=== PATIENT | female | born 1995 | race Caucasian/White ===

== ENCOUNTER → 2016-09-27 | Outpatient (CLI) | payer MEDICAID ==
[~2016-09-27] MED LIST: IBUP-232 PO
== END ==
LOC: CLAB 15:36
PROVIDERS: ATTEND Obstetrics & Gynecology
DX: O36.0190 Maternal care for anti-D [Rh] antibodies, unspecified trimester, not applicable or unspecified (principal)
CPT/HCPCS: 36415; 86850; 86900; 86901; 90384; J2790

== ENCOUNTER → 2016-09-30 | Outpatient (CLI) | payer MEDICAID | LOC: CIVT 14:33 | PROVIDERS: ATTEND Obstetrics & Gynecology | DX: O36.0990 Maternal care for other rhesus isoimmunization, unspecified trimester, not applicable or unspecified (principal); Z3A.00 Weeks of gestation of pregnancy not specified | CPT/HCPCS: 90384; 96372; J2790 ==

== ENCOUNTER 2016-12-09 08:41 | Inpatient (IN) | payer MEDICAID ==
[2016-12-09] VITALS (65 sets, daily range): BP systolic 77–142; BP diastolic 47–103; PULSE 18–177; RESP 16–19; TEMP 97.6–98.6
[2016-12-09] MEDS ORDERED: LACTATED RINGER'S 1000 ML INJ 1,000 ML IV PRN (09:01)
[2016-12-09] MEDS ORDERED: LACTATED RINGER'S 1000 ML INJ 1,000 ML IV SCH (09:01)
--- NOTE | 2016-12-09 09:09 | PD ---
HPI Chief Complaint Water broke and contractions Date Seen: Dec 09, 2016 Travel History International Travel<30 Days: No Contact w/Intl Traveler<30Days: No Known Affected Area: No History of Present Illness HPI Patient is 21-year-old white female at 38 weeks with spontaneous rupture membranes and early labor, is gross ruptured membranes noted OB ED. Contractions are regular painful and her cervix is 3 cm 80% effaced, heart rate tracing is reactive and regular contractions saying Para: 0 : 1 History Social History Alcohol Use: No Tobacco Use: No Substance Abuse: No Allergies-Medications (Allergen,Severity, Reaction): Coded Allergies: No Known Allergies (Unverified , 12/09/16) Review of Systems General / Constitutional: No: Fever, Weight Gain, Chills, Other Eyes: No: Diploplia, Blurred Vision, Visual changes, Pain, Photophobia HENT: No: Headaches, Vertigo, Lightheadedness Cardiovascular: No: Irregular Rhythm, Chest Pain or Discomfort, Palpitations, Tachycardia, Syncope, Varicosities, Edema, Cyanosis Respiratory: No: Cough, Short of Breath, Other Gastrointestinal: No: Nausea, Vomiting, Diarrhea Genitourinary: No: Decreased Urinary Output, Oliguria Musculoskeletal: No: Limited ROM, Weakness, Cramping, Edema, Pain Skin: No Rash, No Itching, No Dryness, No Lumps, No Change in Pigmentation, No Change in Nails, No Alopecia, No Lesions Neurologic: No: Weakness, Dizziness, Syncope, Focal Abnormalities, Coordination Problem, Headache, Slurred Speech, Seizures Psychiatric: No: Depression, Suicidal Ideations, Homicidal Ideation Endocrine: No: Heat Intolerance, Cold Intolerance, Polydipsia, Polyuria, Other Physical Exam Narrative GENERAL: Well-nourished, well-developed patient. SKIN: Warm and dry. HEAD: Normocephalic and atraumatic. EYES: No scleral icterus. No injection or drainage. ENT: No nasal drainage noted. Mucous membranes pink. Airway patent. NECK: Supple, trachea midline. No JVD. CARDIOVASCULAR: Regular rate and rhythm without murmurs, gallops, or rubs. RESPIRATORY: Breath sounds equal bilaterally. No accessory muscle use. BREASTS: Bilateral exam showed no masses , no retractions, no nipple discharge. ABDOMEN/GI: Abdomen soft, non-tender, bowel sounds present, no rebound, no guarding Gravid to [38-] weeks size Fundal Height: [38-] GENITOURINARY: External Genitalia: intact and normal in appearance BUS glands: [-] Cervix: [-] Dilatation: [-3] Effacement: [-80] Station: [-2] Presentation: [vtx-] Membranes: ruptured] Uterine Contractions: [q 3 min-] FHT's: Category: [-1] Baseline: [133-] Reactive: [-yes] Variability: [mod-] Decels: [-] EXTREMITIES: No cyanosis or edema. BACK: Nontender without obvious deformity. No CVA tenderness. NEUROLOGICAL: Awake and alert. Motor and sensory grossly within normal limits. Five out of 5 muscle strength in all muscle groups. Normal speech. Data Data Orders Ob (2e) Additional Admit Info (12/09/16 08:52) Admit To Inpatient (12/09/16 ) Code Status (12/09/16 09:01) Vital Signs (Adult) .Per protocol (12/09/16 09:01) Activity Oob Ad Torie (12/09/16 09:01) Heart (12/09/16 09:01) Amnioinfusion (12/09/16 09:01) Urinary Catheter Management .ONCE (12/09/16 09:01) Diet Liquid (12/09/16 Breakfast) Lactated Ringer's 1000 Ml Inj (Lr 1000 M (12/09/16 09:01) Lactated Ringer's 1000 Ml Inj (Lr 1000 M (12/09/16 09:01) Sodium Chlorid 0.9% 500 Ml Inj (Ns 500 M (12/09/16 09:15) Sodium Chlor 0.9% 1000 Ml Inj (Ns 1000 M (12/09/16 09:21) Lidocaine 1% Inj (50 Ml) (Xylocaine 1% I (12/09/16 09:15) Citric Acid-Sodium Citrate Liq (Bicitra (12/09/16 09:15) Ondansetron Inj (Zofran Inj) (12/09/16 09:15) Fentanyl Inj (Fentanyl Inj) (12/09/16 09:15) Fentanyl Inj (Fentanyl Inj) (12/09/16 09:15) Complete Blood Count With Diff (12/09/16 09:01) Hold Clot (12/09/16 09:01) Abo/Rh Blood Type (12/09/16 09:01) Urinalysis - C+S If Indicated (12/09/16 09:01) Resp Oxygen Non Rebreathe Mask (12/09/16 ) ^ Epidural / Intrathecal Infus (12/09/16 09:01) Oxytocin 30 Units-500ml Premix (Pitocin (12/09/16 09:15) Lidocaine 1% Inj (50 Ml) (Xylocaine 1% I (12/09/16 09:15) Light Mineral Oil (Muri-Lube Oil) (12/09/16 09:15) Inpatient Certification (12/09/16 ) Specimen To Be Collected PRN (12/09/16 09:01) MDM Interpretation(s) Patient is 21-year-old white female at 38 weeks presents planning of rupture membranes early labor. The contractions noted be every 2-3 minutes and is gross rupture noted on OB ED. Patient's cervix is 3 cm 80% and -2 vertex and the heart rate tracing is reactive Plan Plan to admit for labor management augmentation as needed patient is one [facility] patient's and Dr. Duncan& Dr. Hallman or where the patient's status Diagnosis Diagnosis: Primary Impression: Leakage of amniotic fluid Additional Impression: Uterine contractions during Condition: Stable Lawrence Manuel II, MD Dec 09, 2016 09:09
[2016-12-09] MEDS ORDERED: CITRIC ACID-SODIUM CITRATE LIQ 30 ML UDC PO SCH (09:15)
[2016-12-09] MEDS ORDERED: LIDOCAINE HCL 1% 50 ML VIAL INFIL PRN (09:15)
[2016-12-09] MEDS ORDERED: OXYTOCIN 30 UNITS-500ML PREMIX 500 ML IV ONE ×2 (09:15→14:00)
[2016-12-09] MEDS ORDERED: SODIUM CHLORID 0.9% 500 ML INJ 500 ML IV PRN (09:15)
[2016-12-09] MEDS ORDERED: LIDOCAINE HCL 1% 50 ML VIAL I-DERMAL PRN (09:15)
[2016-12-09] MEDS ORDERED: ONDANSETRON HCL 4 MG/2 ML VIAL IV PRN (09:15)
[2016-12-09] MEDS ORDERED: MINERAL OIL 10 ML VIAL TOPICAL PRN (09:15)
[2016-12-09] MEDS ORDERED: SODIUM CHLOR 0.9% 1000 ML INJ 1,000 ML IV PRN (09:21)
[2016-12-09 09:40] LABS: BASOPHIL % 0.4 % (0.0-2.0); EOSINOPHIL % 0.2 % (0.0-4.0); HEMATOCRIT 36.8 % (35.0-46.0); HEMO FLAGS DIFF FINAL; LYMPH % 16.7 % (9.0-44.0); LYMPHOCYTE # 1.9 TH/MM3 (1.0-4.8); MEAN CELL VOLUME 89.1 FL (80.0-100.0); MEAN CORPUSCULAR HEMOGLOBIN 29.9 PG (27.0-34.0); MEAN CORPUSCULAR HGB CONC 33.5 % (32.0-36.0); MONO % 4.3 % (0.0-8.0); NEUT % 78.4 % (16.0-70.0); PLATELET COUNT 211 TH/MM3 (150-450); RED BLOOD COUNT 4.13 MIL/MM3 (4.00-5.30); RED CELL DISTRIBUTION WIDTH 13.6 % (11.6-17.2); WHITE BLOOD COUNT 11.4 TH/MM3 (4.0-11.0)
[2016-12-09 09:49] LABS: BACTERIA, URINE RARE /hpf; BLOOD, URINE TRACE (NEG); COMMENT (UR) CULT NOT INDICATED; CULTURE IF INDICATED CULT NOT INDICATED; GLUCOSE,URINE NEG (NEG); KETONE, URINE NEG (NEG); MUCUS URINE FEW /lpf (OCC); NITRITE,URINE NEG (NEG); PH, URINE 6.5 (5.0-8.5); SQUAMOUS EPITHELIAL CELL URINE 4 /hpf (0-5); URINE COLOR YELLOW (YELLW/STRAW)
[2016-12-09] MEDS ORDERED: ePHEDrine/NS 25 MG/5 ML SYR ONE (10:19)
[2016-12-09] MEDS ORDERED: fentaNYL 2MCG-BUPIV 0.125% INJ 100 ML ONE (10:19)
[2016-12-09] MEDS ORDERED: DO NOT ADMINISTER ANTICOAGULANTS PRN (13:30)
[2016-12-09] MEDS ORDERED: ePHEDrine/NS 25 MG/5 ML SYR IV PRN (13:30)
[2016-12-09] MEDS ORDERED: fentaNYL 2MCG-BUPIV 0.125% 100 ML EPIDURAL SCH (13:30)
[2016-12-09] MEDS ORDERED: NO SYSTEM NARCOTICS PRN (13:30)
--- NOTE | 2016-12-09 13:52 | PD.OB.DELI ---
Anesthesia: Epidural Episiotomy: None Vaginal Delivery: Normal Presentation: Occiput anterior Nuchal Cord: x1 : Male One Minute : 8 Five Minute : 9 Weight: 7-7 Placenta: Spontaneous delivery Laceration: Perineal laceration, 1 deg Repair: Chromic interrupted Luz Hallman MD Dec 09, 2016 13:52
[2016-12-09] MEDS ORDERED: oxyCODONE/ACETAMINOPHEN 5 MG/325 MG TAB PO PRN (14:00)
[2016-12-09] MEDS ORDERED: ONDANSETRON ODT 4 MG TAB PO PRN (14:00)
[2016-12-09] MEDS ORDERED: WITCH HAZEL 50%/GLYCERIN 12.5% 40 PAD JAR TOPICAL PRN (14:00)
[2016-12-09] MEDS ORDERED: SODIUM CHLORIDE 0.9% FLUSH 10 ML FLUSH IV FLUSH PRN (14:00)
[2016-12-09] MEDS ORDERED: ACETAMINOPHEN 325 MG TAB PO PRN (14:00)
[2016-12-09] MEDS ORDERED: ALUMINUM/MAGNESIUM/SIMETH 30 ML CUP PO PRN (14:00)
[2016-12-09] MEDS ORDERED: ZOLPIDEM TARTRATE 5 MG TAB PO PRN (14:00)
[2016-12-09] MEDS ORDERED: BENZOCAINE 20% TOPICAL SPRAY 60 ML CAN TOPICAL PRN (14:00)
[2016-12-09] MEDS: IBUPROFEN 600 MG TAB PO PRN ×2 (15:57→22:09)
[2016-12-09] MEDS ORDERED: MEASLES, MUMPS, RUBELLA VACCINE 0.5 ML VIAL SQ ONE (16:00)
[2016-12-09] MEDS ORDERED: DIPHTH/TETANUS/ACEL PERTUSSIS (BOOSTER) 0.5 ML VIAL/PFS IM ONE (16:00)
[2016-12-09] MEDS ORDERED: SODIUM CHLORIDE 0.9% FLUSH 10 ML FLUSH IV FLUSH SCH (21:00)
[2016-12-09] MEDS: DOCUSATE SODIUM 50 MG/SENNA 8.6 MG TAB PO PRN (22:09)
[2016-12-10] MEDS: IBUPROFEN 600 MG TAB PO PRN ×4 (04:51→22:51)
--- NOTE | 2016-12-10 08:28 | HHI.OB ---
Subjective Post Day: 1 Remarks doing well Objective Vitals/I&O Vital Signs Date Time Temp Pulse Resp B/P Pulse Ox O2 Delivery O2 Flow Rate FiO2 12/09/16 19:50 97.9 18 18 113/78 12/09/16 19:50 75 12/09/16 17:05 98.5 101 18 101/75 12/09/16 16:02 95 109/72 12/09/16 16:01 91 12/09/16 15:30 85 110/73 12/09/16 15:01 177 127/69 12/09/16 14:45 78 113/63 12/09/16 14:31 80 109/63 12/09/16 14:30 18 12/09/16 14:23 98.6 12/09/16 14:15 16 12/09/16 14:15 86 122/75 12/09/16 14:00 84 121/75 12/09/16 14:00 18 12/09/16 13:46 110 106/64 12/09/16 13:45 18 12/09/16 13:30 116 118/94 12/09/16 13:20 89 12/09/16 13:16 110 77/53 12/09/16 13:15 88 12/09/16 13:10 92 12/09/16 13:05 94 12/09/16 13:00 88 100/73 12/09/16 13:00 84 12/09/16 12:55 83 12/09/16 12:50 85 12/09/16 12:45 81 106/61 12/09/16 12:45 77 12/09/16 12:40 81 12/09/16 12:35 80 12/09/16 12:32 86 97/47 12/09/16 12:30 78 12/09/16 12:30 97.6 12/09/16 12:30 18 12/09/16 12:25 84 12/09/16 12:20 87 12/09/16 12:16 65 90/59 12/09/16 12:15 73 12/09/16 12:10 71 12/09/16 12:05 71 12/09/16 12:00 18 12/09/16 12:00 69 126/65 12/09/16 12:00 66 12/09/16 11:55 113 12/09/16 11:55 74 117/62 12/09/16 11:50 72 125/62 12/09/16 11:50 70 12/09/16 11:47 81 103/84 12/09/16 11:45 70 12/09/16 11:41 73 142/103 12/09/16 11:40 74 12/09/16 11:35 80 12/09/16 11:35 103 139/66 12/09/16 11:31 88 93/60 12/09/16 11:30 87 12/09/16 11:30 17 12/09/16 11:25 75 110/65 12/09/16 11:25 87 12/09/16 11:20 68 107/68 12/09/16 11:20 78 12/09/16 11:15 72 12/09/16 11:15 71 110/69 12/09/16 11:10 70 118/75 12/09/16 11:10 73 12/09/16 11:05 71 114/67 12/09/16 11:05 66 12/09/16 11:00 71 112/68 12/09/16 11:00 18 12/09/16 11:00 73 12/09/16 11:00 97.8 12/09/16 10:55 63 12/09/16 10:55 63 110/64 12/09/16 10:52 64 110/78 12/09/16 10:50 20 12/09/16 10:50 73 12/09/16 10:49 61 109/79 12/09/16 10:48 74 78/52 12/09/16 10:45 64 12/09/16 10:42 69 118/90 12/09/16 10:30 74 12/09/16 10:30 19 12/09/16 10:25 83 12/09/16 10:20 91 12/09/16 10:15 74 12/09/16 10:10 71 12/09/16 10:00 18 12/09/16 09:30 18 12/09/16 08:55 71 119/77 Objective Remarks GENERAL: Well-nourished, well-developed patient. CARDIOVASCULAR: Regular rate and rhythm without murmurs, gallops, or rubs. RESPIRATORY: Breath sounds equal bilaterally. No accessory muscle use. ABDOMEN/GI: Abdomen soft, non-tender. Fundus: Firm, non-tender at umbilicus. GENITOURINARY: Light to moderate bleeding. EXTREMITIES: No cyanosis or edema, non-tender, without signs of DVT. Medications and IVs Current Medications Medications (Trade) Dose Ordered Sig/Evelyn Route Start Time Stop Time Status Last Admin (NS Flush) 2 ml BID IV FLUSH 12/09/16 21:00 (NS Flush) 2 ml UNSCH PRN IV FLUSH 12/09/16 14:00 (Tylenol) 650 mg Q4H PRN PO 12/09/16 14:00 (Motrin) 600 mg Q6H PRN PO 12/09/16 14:00 12/10/16 04:51 (Percocet 5-325 Mg) 1 tab Q4H PRN PO 12/09/16 14:00 (Americaine 20% Top Spr) 1 spray Q4H PRN TOPICAL 12/09/16 14:00 12/09/16 16:58 (Tucks Pads) 1 applic QID PRN TOPICAL 12/09/16 14:00 12/09/16 16:58 (Aisha-Colace) 2 tab Q12H PRN PO 12/09/16 14:00 12/09/16 22:09 (Ambien) 5 mg HS PRN PO 12/09/16 14:00 (Mag-Al Plus Susp Liq) 15 ml Q8H PRN PO 12/09/16 14:00 (Zofran Odt) 4 mg Q6H PRN PO 12/09/16 14:00 Assessment/Plan Problem List: (1) (spontaneous vaginal delivery) Assessment and Plan PPD 1 cont routine supportive care Discharge Planning ppd 2 Leslie Khanna MD Dec 10, 2016 08:27
[2016-12-10] MEDS: DOCUSATE SODIUM 50 MG/SENNA 8.6 MG TAB PO PRN (16:51)
[2016-12-11 07:50] VITALS: BP 116/72; PULSE 71; RESP 18; TEMP 98.1
[2016-12-11] MEDS ORDERED: IBUP-232 PO (12:53)
--- NOTE | 2016-12-11 12:54 | HHI.DCPOC ---
Discharge Care Plan Diagnosis: (1) (spontaneous vaginal delivery) Your Health Problems Are: Vaginal delivery Report Symptoms to Your Doctor -Temperature above 100.5 degrees -Redness, of incision or excessive or foul smelling drainage -Unusual pain or calf pain -Increased vaginal bleeding -Painful or difficulty urinating -Feelings of extreme sadness or anxiety after 2 weeks Goals to Promote Your Health * To prevent worsening of your condition and complications * To maintain your health at the optimal level Directions to Meet Your Goals Take your medications as prescribed Follow your dietary instruction Follow activity as directed Ensure plenty of rest for recovery Drink fluids for hydration Keep your appointments as scheduled Take your immunizations and boosters as scheduled If your symptoms worsen call your PCP, if no PCP go to Urgent Care Center or Emergency Room Smoking is Dangerous to Your Health. Avoid second hand smoke Call the 24-hour crisis hotline for domestic abuse at Alba Bedoya MD Dec 11, 2016 12:54
== END 2016-12-11 14:36 | disposition home or self-care (01) | DRG 775 ==
LOC: HOBED 08:41 → H2EB 08:54 → H1EA 16:37
PROVIDERS: ADMIT Obstetrics & Gynecology; ATTEND Obstetrics & Gynecology
PROC: 0HQ9XZZ Repair Perineum Skin, External Approach (ICD-10-PCS; principal; 2016-12-09)
PROC: 10E0XZZ Delivery of Products of Conception, External Approach (ICD-10-PCS; 2016-12-09)
PROC: 3E0R3CZ (ICD-10-PCS; 2016-12-09)
PROC: 00HU33Z Insertion of Infusion Device into Spinal Canal, Percutaneous Approach (ICD-10-PCS; 2016-12-09)
DX: O70.0 First degree perineal laceration during delivery (principal); O69.81X0 Labor and delivery complicated by cord around neck, without compression, not applicable or unspecified; Z37.0 Single live birth; Z3A.38 38 weeks gestation of pregnancy
CPT/HCPCS: 59025; 81001; 84112; 85025; 86900; 86901; 99285; J3010; J7120